=== PATIENT | female | born 1985 | race Caucasian/White ===

== ENCOUNTER 2023-08-08 13:52 | Emergency (ER) | payer MEDICAID, SELFPAY ==
--- NOTE | ~2023-08-08 | CT_ITS ---
EXAMINATION: CT ABDOMEN AND PELVIS WITHOUT CONTRAST CLINICAL INFORMATION: Left flank/back pain. Kidney stones? COMPARISON: None available. TECHNIQUE: Multidetector volumetric imaging was performed from the superior aspect of the liver through the pubic symphysis. Sagittal and coronal reformatted images were obtained on the technologist's workstation. This CT examination was performed using dose optimization techniques as appropriate, variously including the following: *Automated exposure control *Adjustment of mA and/or kV according to patient size (this includes techniques or standardized protocols for targeted exams where dose is matched to indication/reason for exam; i.e. extremities or head) *Use of iterative reconstruction technique DLP: 919 mGy-cm FINDINGS: LUNG BASES: The visualized lung bases are unremarkable. LIVER, GALLBLADDER, AND BILIARY TREE: The liver is normal in size, shape, and attenuation. No focal hepatic lesion or biliary ductal dilatation is present. The gallbladder is unremarkable with no evidence of radiopaque gallstones, gallbladder wall thickening, or obvious pericholecystic inflammatory changes. PANCREAS: Unremarkable. SPLEEN: Unremarkable. ADRENAL GLANDS: Unremarkable. KIDNEYS AND URETERS: 1 to 2 mm size stone in the upper pole of left kidney. No stone in the right kidney. No hydronephrosis. No ureteral calculi. BLADDER: Unremarkable. GASTROINTESTINAL TRACT: No acute abnormality. There is no bowel wall thickening /edema. There is no bowel obstruction. There is a moderate volume of stool in the colon. The appendix is normal . The small bowel loops are unremarkable. The stomach is normal. There is no hiatal hernia. ABDOMINAL WALL: No significant hernia is appreciated. LYMPH NODES: Normal. VASCULAR: Unremarkable. PELVIC VISCERA: Unremarkable. OSSEOUS STRUCTURES: Unremarkable. CT/CT abdomen pelvis wo IV con IMPRESSION: 1. No acute abnormality CT scan abdomen pelvis. 2. 1 to 2 mm size stone upper pole left kidney. No ureteral calculi or hydronephrosis. Fleischner guidelines were followed.
--- NOTE | ~2023-08-08 | XR_ITS ---
EXAMINATION: XR KNEE, RIGHT CLINICAL INFORMATION: Right knee pain COMPARISON: None available. TECHNIQUE: Four views of the right knee. FINDINGS: There is no fracture. No dislocation. No joint effusion. No focal bone lesion. Moderate joint narrowing of the medial femoral tibial joint with small marginal bone spurs of the femur. No bone erosion. Patellofemoral joint is maintained. Small exostosis at the origin of the patellar tendon inferior pole of the patella XR/XR knee RT 4V IMPRESSION: 1. No acute abnormality. 2. Moderate degenerative joint narrowing of the medial femoral tibial joint.
--- NOTE | ~2023-08-08 | XR_ITS ---
EXAMINATION: XR LUMBOSACRAL SPINE CLINICAL INFORMATION: Low back pain COMPARISON: None available. TECHNIQUE: Three views of the lumbosacral spine. FINDINGS: No fracture or destructive process or alignment abnormality. Vertebral body heights and disc space heights do appear preserved. XR/XR lumbar spine 2-3V IMPRESSION: Negative study.
[2023-08-08 14:01] VITALS: BP 144/105; PULSE 94; RESP 18; TEMP 36.6; O2SAT 97; BMI 47.7
--- NOTE | 2023-08-08 14:07 | ED_ITS ---
HPI - General Adult General Chief complaint: Back Pain/Injury Stated complaint: Numbness/tingling right leg Time Seen by Provider: 08/08/23 14:59 Source: patient Mode of arrival: ambulatory Limitations: no limitations History of Present Illness HPI narrative: 37-year-old female history of kidney stone presents to ED for right-sided back pain radiating down right buttock and right leg. Patient denies any lower extremity swelling. Patient does admits to knee pain. Patient denies any recent trauma. Patient states pain is worse on movement. Patient denies any urinary/bowel incontinence. Patient denies any IV drug use. Patient denies any recent trauma Related Data Previous Rx's ?Medication ?Instructions ?Recorded ketorolac 10 mg tablet 10 mg PO Q6H PRN pain 5 days #20 08/08/23 tabs oxycodone 5 mg capsule 5 mg PO Q8H PRN pain 3 days #9 caps 08/08/23 prednisone 20 mg tablet 40 mg (2 x 20 mg) PO DAILY 5 days 08/08/23 #10 tabs Allergies Allergy/AdvReac Type Severity Reaction Status Date / Time No Known Allergies Allergy Verified 08/08/23 14:07 [No Known Allergies*] Review of Systems 2 Review of Systems: Right-sided back pain radiating down right leg Yes all other systems are reviewed and are negative PMFSH Social History Social History Smoked in Last 30 Days: Yes Use of substances other than those prescribed or required for medical reasons: No Advance Directives: No Advance Directives Information Provided: No Physical Exam ED Vital Signs: Vital Signs - 24 hr 08/08/23 14:01 08/08/23 16:23 Temperature 98 F 97.9 F Pulse Rate 94 96 Respiratory Rate 18 16 Blood Pressure 144/105 H 154/78 H Pulse Oximetry 97 Oxygen Delivery Method Room Air Oxygen Flow Rate 98 BMI result Body Mass Index 47.7 Const General: cooperative, healthy appearing, comfortable, no acute distress, well developed, alert, awake and Physically active Orientation/consciousness: oriented to person, oriented to place, oriented to time and patient oriented x3 HENMT Head: Yes normal to inspection, Yes No palpable skull fracture present, Yes normocephalic and Yes atraumatic Eyes General: appearance normal, both eyes and all related structures Neck Neck: Yes normal visual inspection, Yes full ROM, Yes no lymphadenopathy, Yes no meningeal signs, Yes trachea midline, Yes supple, No anterior neck swelling and No tender Chest Chest palpation & inspection: normal inspection of the chest and normal palpation of entire chest wall Resp Effort & Inspection: normal respiratory effort and able to speak in complete sentences Auscultation: clear to auscultation bilaterally Cardio Jugular venous distension: no JVD Heart sounds: S1 normal heart sound present and S2 normal heart sound present GI Inspection: Yes normal to inspection Palpation (GI): Soft to palpation, not firm, nontender, no guarding and not rigid General: Yes CVA tenderness (Right) Back/Spine/Pelvis Back: CVA tenderness (Right) and back tenderness (Right muscular lumbar pain) Back/spine/pelvis image: 2 1. Positive for right buttock tenderness without any erythema, mass, fluctuance, foul odor, ecchymosis, or deformity. Neuro General: oriented to person, oriented to place, oriented to time, patient oriented x3, gait normal, tone normal, moves all extremities, Normal light touch and pain sensation, no meningeal signs, no focal motor deficits, CN's II-XI intact bilaterally and normal sensation to monofilament Extrem General: Yes normal to inspection, Yes full ROM and Yes capillary refill normal Upper/lower leg/hip images: 2 1. Positive for tenderness on palpation. Negative for erythema, swelling, deformity, or ecchymosis. Rest of extremity normal. No calf pain or leg swelling. Motor/neuro/vascular exam intact. 2. Positive for tenderness on palpation. Negative for erythema, swelling, deformity, or ecchymosis. Rest of extremity normal. No calf pain or leg swelling. Motor/neuro/vascular exam intact. Psych Appearance: grossly normal, well kempt and not disheveled Course Course Course Narrative: RME: 37-year-old female presents to ED for back pain radiating down right leg for 1 month described as sharp stabbing pain some numbness down the leg. Patient denies any urinary/bowel incontinence. Patient also states right knee pain. Patient states no flank pain, fever, chills, nausea, or vomiting. Medications Administered Discontinued Medications Generic Name Dose Route Start Last Admin Trade Name Freq PRN Reason Stop Dose Admin Cyclobenzaprine HCl 10 mg 08/08/23 16:23 08/08/23 16:38 Cyclobenzaprine Hcl 10 Mg Tablet PO 08/08/23 16:24 10 mg ONCE ONE Administration Ketorolac Tromethamine 30 mg 08/08/23 14:59 08/08/23 16:17 Ketorolac Tromethamine 30 Mg/Ml Vial IM 08/08/23 15:00 30 mg ONCE ONE Administration Oxycodone HCl 5 mg 08/08/23 17:51 08/08/23 18:41 Oxycodone Hcl Immed Release 5 Mg Tablet PO 08/08/23 17:52 5 mg ONCE ONE Administration Prednisone 60 mg 08/08/23 14:59 08/08/23 16:17 Prednisone 20 Mg Tablet PO 08/08/23 15:00 60 mg ONCE ONE Administration Tramadol HCl 50 mg 08/08/23 21:08 08/08/23 21:39 Tramadol Hcl 50 Mg Tablet PO 08/08/23 21:09 50 mg ONCE ONE Administration Medical Decision Making Medical Decision Making MDM Narrative: 37-year-old female presents to ED for right lower back pain radiating down right leg. Patient denies any trauma. Patient denies any urinary/bowel incontinence. Patient states no history of IV drug use. X-ray negative for radiculopathy. Patient states history of kidney stones. Patient states she is on menstruation which is widely lot of blood in the urine but patient was sent for abdominal CT scan. Labs are normal negative kidney injury. Patient given Toradol,oxycodone, prednisone, flexeril RME: CT scan shows left upper pole kidney. Negative for any spinal fractures, arthritis of the spine or hip. Appendix normal. Re-evaluation tenderness only in the right buttock area for sciatica. Right buttock area negative for fluctuance, mass, pus discharge, foul odor. Not suspecting epidural abscess or cauda equina. Negative for urinary/bowel incontinence or history of IV drug use. Differential Diagnosis Differential Diagnoses: The differential diagnosis associated with the presentation includes (Sciatica, lumbar radiculopathy, kidney stone, spinal fracture) Lab Data 08/08/23 18:09 08/08/23 18:09 Labs: Lab Results 08/08/23 08/08/23 Range/Units 16:35 18:09 WBC 11.2 H (4.8-10.8) X10*3/uL RBC 4.91 (4.20-5.50) X10*6/uL Hgb 13.3 (12.0-16.0) g/dl Hct 41.1 (37.0-47.0) % MCV 83.7 (80.0-98.0) fL MCH 27.1 (27.0-33.0) pg MCHC 32.4 (31.0-35.0) g/dl RDW 13.7 (11.0-16.0) % Plt Count 290 (160-400) X10*3/uL MPV 10.1 (9.4-12.3) fL Immature Gran % (Auto) 0.4 (0.0-0.4) % Neut % (Auto) 79.8 H (45-73) % Lymph % (Auto) 14.5 L (20-40) % [place] % (Auto) 3.7 (2-11) % Eos % (Auto) 1.3 (0-4) % Baso % (Auto) 0.3 (0-2) % Lymph # (Auto) 1.6 (1.2-4.9) X10*3/uL [place] # (Auto) 0.4 (0.1-1.2) X10*3/uL Eos # (Auto) 0.1 (0.0-0.4) X10*3/uL Baso # (Auto) 0.0 (0.0-0.2) X10*3/uL Abs Immat Gran (auto) 0.04 H (0.00-0.03) X10*3/uL Absolute Neuts (auto) 8.9 H (2.0-8.3) x10*3/uL Absolute Nucleated RBC 0.000 (0.0-0.012) X10*3/uL Nucleated RBC % (auto) 0.0 (0.0-0.2) /100WBC Sodium 141 (135-145) mmol/L Potassium 4.3 (3.3-5.1) mmol/L Chloride 107 (96-108) mmol/L Carbon Dioxide 25 (22-29) mmol/L Anion Gap 13 (12-20) BUN 11 (9-16) mg/dL Creatinine 0.74 (0.5-1.4) mg/dL Estim Creat Clear Calc 149.3 Estimated GFR > 60 Random Glucose 101 (60-115) mg/dL Calcium 9.8 (8.4-10.2) mg/dL Total Bilirubin 0.6 (0.0-1.0) mg/dL AST 16 (5-31) U/L ALT 17 (0-31) U/L Alkaline Phosphatase 56 (39-117) U/L Total Protein 7.8 (6.5-8.0) g/dL Albumin 3.9 (3.5-5.0) g/dL Urine Color Yellow Urine Appearance Clear Urine pH 5.5 (5.0-9.0) Ur Specific [place] 1.025 (1.005-1.025) Urine Protein Trace (Neg-Trace) mg/dL Urine Glucose (UA) Negative (Negative) mg/dL Urine Ketones Negative (Negative) mg/dL Urine Blood Large (3+) H (Negative) Urine Nitrite Negative (Negative) Ur Leukocyte Esterase Negative (Negative) Urine RBC >20 H (0-2) /HPF Urine WBC 0-5 (0-5) /HPF Ur Squamous Epith Cells 0-2 (0-2) /HPF Urine Bacteria 1+ (None Seen) Hyaline Casts 0-2 (0-2) /LPF Urine Test NEGATIVE (NEGATIVE) Discharge Plan Discharge Clinical Impression: Sciatica, Arthritis of knee Patient Disposition: Home, Self-Care Instructions: Osteoarthritis (ED), Sciatica (ED), Back Pain (ED) Additional Instructions: Return to the ED immediately for severe back pain, urinary/bowel incontinence, fever, chills, paralysis of lower extremities, fever, chills, nausea, vomiting, abdominal pain, inability to walk, knee swelling/redness/stiffness or any other concerning symptoms. Recommend follow-up with primary care provider Prescriptions: New ketorolac 10 mg tablet 10 mg PO Q6H PRN (Reason: pain) 5 Days Qty: 20 0RF Rx Instructions: Received Toradol IM in the ED prednisone 20 mg tablet 40 mg PO DAILY 5 Days Qty: 10 0RF oxycodone 5 mg capsule 5 mg PO Q8H PRN (Reason: pain) 3 Days Qty: 9 0RF Rx Instructions: Partial Fill upon patient request. Stand Alone Forms: Work/School Release Interventions: ED Discharge Assessment Last Done: 08/08/23 21:45 Discharge Date/Time: 08/08/23 21:46 Print Language: Kyrgyz
[2023-08-08] MEDS: predniSONE 20 MG TABLET 60 MG PO (16:17)
[2023-08-08] MEDS: Ketorolac Tromethamine 30 MG/ML VIAL IM (16:17)
[2023-08-08 16:23] VITALS: BP 154/78; PULSE 96; RESP 16; TEMP 36.6
[2023-08-08] MEDS: Cyclobenzaprine HCl 10 MG TABLET PO (16:38)
[2023-08-08 16:42] LABS: Appearance Urine Clear; Color Urine Yellow; Glucose Urine UA Negative (Negative); Leukocyte Esterase Urine Negative (Negative); Nitrite Urine Negative (Negative); PH 5.5 (5.0-9.0); Specific Gravity - Urine 1.025 (1.005-1.025); UMIC TRIGGER UACC YES; Urine Blood Large (3+) (Negative); Urine Ketones Negative (Negative); Urine Protein Trace mg/dL (Neg-Trace)
[2023-08-08 16:45] LABS: Bacteria Urine 1+ (None Seen); Hyaline Casts Urine 0-2 /LPF (0-2); RBC Urine >20 /HPF (0-2); Squamous Epithelial Cell Urine 0-2 /HPF (0-2); UPreg QC Valid YES; Urine Pregnancy NEGATIVE (NEGATIVE); WBC Urine 0-5 /HPF (0-5)
[2023-08-08 18:14] LABS: MANUAL DIFF FLAG NO
[2023-08-08 18:22] LABS: Basophils Percent Auto 0.3 % (0-2); Eosinophils Absolute Auto 0.1 X10*3/uL (0.0-0.4); Eosinophils Percent Auto 1.3 % (0-4); Hematocrit 41.1 % (37.0-47.0); Hemoglobin 13.3 g/dl (12.0-16.0); Imm Gran Abs Auto 0.04 X10*3/uL (0.00-0.03); Imm Gran Pct Auto 0.4 % (0.0-0.4); Lymphocytes Absolute Auto 1.6 X10*3/uL (1.2-4.9); Lymphocytes Percent Auto 14.5 % (20-40); Mean Corpuscular HGB Conc 32.4 g/dl (31.0-35.0); Mean Corpuscular Hemoglobin 27.1 pg (27.0-33.0); Mean Corpuscular Volume 83.7 fL (80.0-98.0); Mean Platelet Volume 10.1 fL (9.4-12.3); Monocytes Absolute Auto 0.4 X10*3/uL (0.1-1.2); Monocytes Percent Auto 3.7 % (2-11); Neutrophils Absolute Auto 8.9 x10*3/uL (2.0-8.3); Neutrophils Percent Auto 79.8 % (45-73); Platelet Count 290 X10*3/uL (160-400); Red Blood Count 4.91 X10*6/uL (4.20-5.50); Red Cell Distribution Width 13.7 % (11.0-16.0); White Blood Count 11.2 X10*3/uL (4.8-10.8)
[2023-08-08 18:30] LABS: Alanine Aminotransferase 17 U/L (0-31); Albumin Level 3.9 g/dL (3.5-5.0); Alkaline Phosphatase 56 U/L (39-117); Anion Gap 13 (12-20); Aspartate Amino Transferase 16 U/L (5-31); Bilirubin Total 0.6 mg/dL (0.0-1.0); Blood Urea Nitrogen 11 mg/dL (9-16); Calcium 9.8 mg/dL (8.4-10.2); Carbon Dioxide 25 mmol/L (22-29); Chloride 107 mmol/L (96-108); Creatinine Clr Calc Pharmacy 149.3; Estimated Glomerular Filt Rate > 60; Glucose Random 101 mg/dL (60-115); Potassium 4.3 mmol/L (3.3-5.1); Sodium 141 mmol/L (135-145); Total Protein 7.8 g/dL (6.5-8.0)
[2023-08-08] MEDS: oxyCODONE HCl Immed Release 5 MG TABLET PO (18:41)
--- NOTE | 2023-08-08 21:32 | PC.NURSE ---
Took over care from BERNADETTE Cooper at 7pm pt resting awaiting to ct results, provider into discuss findings, reviewed discharge instructions with pt. pt verbalized understanding, at discharge pt had some discomfort but stated she felt better than when she got here.
[2023-08-08] MEDS: traMADoL HCL 50 MG TABLET PO (21:39)
[2023-08-08 21:45] VITALS: BP 157/70; PULSE 68; RESP 20; TEMP 36.6; O2SAT 98
== END 2023-08-08 21:46 | disposition home or self-care (01) ==
PROVIDERS: Physician Assistant; Emergency Provider Emergency Medicine
DX: M54.40 Lumbago with sciatica, unspecified side (principal); M17.11 Unilateral primary osteoarthritis, right knee; M25.561 Pain in right knee; R20.0 Anesthesia of skin; Z79.899 Other long term (current) drug therapy
CPT/HCPCS: 36415; 72100; 73564; 74176; 80053; 81001; 81025; 85025; 96372; 99284; J1885

== ENCOUNTER 2024-02-26 12:51 | Outpatient (REF) | payer MEDICAID, SELFPAY ==
[2024-02-26 14:23] LABS: MANUAL DIFF FLAG NO
[2024-02-26 14:24] LABS: Basophils Percent Auto 0.4 % (0-2); Eosinophils Absolute Auto 0.2 X10*3/uL (0.0-0.4); Eosinophils Percent Auto 1.9 % (0-4); Hematocrit 42.8 % (37.0-47.0); Hemoglobin 13.4 g/dl (12.0-16.0); Imm Gran Abs Auto 0.03 X10*3/uL (0.00-0.03); Imm Gran Pct Auto 0.4 % (0.0-0.4); Lymphocytes Absolute Auto 2.1 X10*3/uL (1.2-4.9); Lymphocytes Percent Auto 25.9 % (20-40); Mean Corpuscular HGB Conc 31.3 g/dl (31.0-35.0); Mean Corpuscular Hemoglobin 25.4 pg (27.0-33.0); Mean Corpuscular Volume 81.2 fL (80.0-98.0); Mean Platelet Volume 10.7 fL (9.4-12.3); Monocytes Absolute Auto 0.4 X10*3/uL (0.1-1.2); Monocytes Percent Auto 4.9 % (2-11); Neutrophils Absolute Auto 5.3 x10*3/uL (2.0-8.3); Neutrophils Percent Auto 66.5 % (45-73); Platelet Count 328 X10*3/uL (160-400); Red Blood Count 5.27 X10*6/uL (4.20-5.50); Red Cell Distribution Width 17.1 % (11.0-16.0)
[2024-02-26 14:30] LABS: Prothrombin Time 11.4 SEC (10.9-12.4)
[2024-02-26 14:53] LABS: Alanine Aminotransferase 19 U/L (0-31); Alkaline Phosphatase 68 U/L (39-117); Anion Gap 14 (12-20); Aspartate Amino Transferase 19 U/L (5-31); Bilirubin Total 0.4 mg/dL (0.0-1.0); Blood Urea Nitrogen 10 mg/dL (9-16); Calcium 9.4 mg/dL (8.4-10.2); Carbon Dioxide 24 mmol/L (22-29); Chloride 108 mmol/L (96-108); Cholesterol 171 mg/dL (<200); Estimated Glomerular Filt Rate > 60; Glucose Random 97 mg/dL (60-115); HDL Cholesterol 46 mg/dL (>40); LDL Cholesterol Calculated 104 mg/dL (<100); Potassium 4.1 mmol/L (3.3-5.1); Sodium 142 mmol/L (135-145); Total Protein 7.9 g/dL (6.5-8.0); Triglycerides 107 mg/dL (<150)
[2024-02-26 15:07] LABS: TSH reflex Free T4 2.61 uIU/mL (0.32-4.0)
[2024-02-26 15:27] LABS: Insulin 31 uU/mL (2-29)
[2024-02-27 08:28] LABS: HIV AB/AG Nonreactive (Nonreactive); HIV Num 1 0.07 S/CO (0.00-0.99); ~Hepatitis C Antibody Nonreactive (Nonreactive)
[2024-02-29 06:49] LABS: Prolactin Undiluted 4.9 ng/mL
[2024-02-29 17:23] LABS: Anti-Mullerian Hormone-Female 1.78 ng/mL (0.18-5.68)
[2024-03-04 16:53] LABS: Testosterone, Free 4.7 pg/mL (0.1-6.4); Testosterone, Total 23 ng/dL (2-45)
== END 2024-02-26 12:52 | disposition home or self-care (01) ==
LOC: HO.CHCLDS 12:51
PROVIDERS: Visit Provider Family Medicine
DX: N93.9 Abnormal uterine and vaginal bleeding, unspecified (principal); E66.01 Morbid (severe) obesity due to excess calories
CPT/HCPCS: 36415; 80053; 80061; 82166; 83525; 84146; 84402; 84403; 84443; 85025; 85610; 86803; 87389

== ENCOUNTER 2024-03-03 15:41 | Outpatient (REF) | payer MEDICAID, SELFPAY | END 2024-03-03 15:42 | disposition home or self-care (01) | LOC: HO.US 15:41 | PROVIDERS: PCP Family Medicine; Visit Provider Family Medicine | DX: N93.9 Abnormal uterine and vaginal bleeding, unspecified (principal) | CPT/HCPCS: 76830; 76856 ==

== ENCOUNTER → 2024-03-31 14:09 | Outpatient (REF) | payer MEDICAID, SELFPAY | LOC: HO.SL 14:09 | PROVIDERS: PCP Family Medicine; Visit Provider Family Medicine | DX: G47.30 Sleep apnea, unspecified (principal) | CPT/HCPCS: 95806 ==

== ENCOUNTER → 2024-04-01 19:00 | Outpatient (BNV) | payer MEDICAID, SELFPAY | PROVIDERS: PCP Family Medicine; Visit Provider Psychiatry & Neurology Neurology | DX: G47.33 Obstructive sleep apnea (adult) (pediatric) (principal) | CPT/HCPCS: 95806 ==

== ENCOUNTER 2024-06-11 17:44 | Outpatient (REF) | payer MEDICAID, SELFPAY ==
--- OUTSIDE RECORDS SUMMARY | 2024-06-11 19:31 | XMS_ITS | Encounter Summary ---
Author Organization [employer] Address [address] [place] [address] [address] [place] [address] Care Team Providers Care Screen Roller Name Role Phone Katerin Brown MD Primary Care Provider [phone] Reason for Visit * Reason Onset Date Comments Nurse Triage 06/11/2024 Encounter Details Date Type Department Care Team ([facility] st Contact Info) Description 06/11/2024 Telephone [facility] [address] [place] [address] Katerin Brown MD [address] [place] [address] Nurse Triage Social History Tobacco Use Types Packs/Day Years Used Date Smoking Tobacco: Never Passive Smoke Exposure: Past Smokeless Tobacco: Never Alcohol Use Standard Drinks/Week Comments Never 0 (1 standard drink = 0.6 oz pur e alcohol) Depression Answer Date Recorded Patient Health Questionnaire-9 Score 23 02/21/2024 Patient Health Questionnaire-9 Score 23 02/21/2024 Last PHQ-9: Questionnaire Data Not on file 1 04/22/2023 Depression Answer Date Recorded Patient Health Questionnaire-2 Score 6 02/21/2024 Comments No Sex and Gender Information Value Date Recorded Sex Assigned at Female 01/29/2022 10:17 AM EDT Legal Sex Female 10:17 AM EDT Gender Identity Female 05/21/2023 11:49 AM EST Sexual Orientation Straight 05/21/2023 11 :49 AM EST documented as of this encounter Miscellaneous Notes * Telephone Encounter - Sunitha Wilson RN - 06/11/2024 1:11 PM EDT Called pt. She states that she has a sore throat and pain in both ears when pt. Swallows. Pt also is developing a cough. Pt. Has decreased appetite due to not wanting to swallow. Pt. Voice is hoarse.Pt did take Tylenol this am with no relief. Pt. Is able to make it to clinic for a 2pm appt. In [facility]. Booked pt for 2pm. Protocol Used: Sore Throat (Adult) Protocol-Based Disposition: See in Office or Video Visit Today- appt at 2pm in [facility] Video visit offer not recorded Positive Triage Questions: * Severe sore throat pain * Earache also present * Patient wants to be seen * All higher-acuity triage questions were negative Care Advice Discussed: * Sore Throat * Soft Diet * Drink Plenty of Liquids * Pain and Fever Medicines * Contagiousness * Telephone Encounter - Kellen Ross - 06/11/2024 1:00 PM EDT Symptoms: Sore Throat, Earache Outcome: Talk to a nurse or provider within 15 minutes Reason: Can't swallow saliva (drooling) The caller accepted this outcome. [phone] (pt) documented in this encounter Plan of Treatment Not on file documented as of this encounter Visit Diagnoses Not on filedocumented in this encounter Additional Health Concerns Assessment Noted Time PHQ-9 Depression Total Score: 23 024 2:09 PM EST documented as of this encounter Care Teams Screen Roller Relationship Specialty Start Date End Date Katerin Brown MD [address] [place] [id number] PCP - General Family Medicine 02/21/24 documented as of this encounter
--- OUTSIDE RECORDS SUMMARY | 2024-06-11 19:31 | XMS_ITS | Encounter Summary ---
Author Organization [employer] Address [address] [place] [address] [address] [facility] [place] [address] Care Team Providers Care Central Sterile Supply Technician Name Role Phone Katerin Brown MD Primary Care Provider [phone] Reason for Referral * Consultation (Urgent) - Closed Specialty Diagnoses / Procedures Referred By Contdonny t Referred To Contact Neurosurgery Diagnoses Sciatica of right side Jovon Skelton MD [address] [place] [id number] Phone: tel: fax: Neurosurgery, [address] [place], [place] Phone: tel: fax: Referral ID Status Reason Start Date Expiration Date V isits Requested Visits Authorized [id number] Closed Specialty Services Required 08/19/2023 08/18/2024 1 1 Encounter Details Date Type Department Care Team (Late st Contact Info) Description 08/19/2023 Orders Only [facility] [address] [place] [address] Jovon Skelton MD [address] [place] [id number] Sciatica of right side (Primary Dx) Social History Tobacco Use Types Packs/Day Years Used Date Smoking Tobacco: Never Smokeless Tobacco: Never Alcohol Use Standard Drinks/Week Comments Never 0 (1 standard drink = 0.6 oz pur e alcohol) Comments No Sex and Gender Information Value Date Recorded Sex Assigned at Female 01/29/2022 10:17 AM EDT Legal Sex Female 10:17 AM EDT Gender Identity Female 05/21/2023 11:49 AM EST Sexual Orientation Straight 05/21/2023 11 :49 AM EST documented as of this encounter Plan of Treatment Not on file documented as of this encounter Procedures Procedure Name Priority Date/Time Associated Diagnosis Comments AMB REFERRAL TO NEUROSURGERY Urgent 09/09/2023 Sciatica of right side documented in this encounter Results * Referral to Neurosurgery (09/09/2023) us Jovon Skelton MD OUTPATIENT REFERRAL ORDERAB LES Final Result documented in this encounter Visit Diagnoses Diagnosis Sciatica of right side- Primary documented in this encounter Care Teams Central Sterile Supply Technician Relationship Specialty Start Date End Date Katerin Brown MD [address] [place] [id number] PCP - General Family Medicine 02/21/24 documented as of this encounter
--- OUTSIDE RECORDS SUMMARY | 2024-06-11 19:31 | XMS_ITS | Clinical Summary ---
Author Organization [employer] Address [address] [place] [address] [address] [place] [address] Care Team Providers Care Community Development Manager Name Role Phone Katerin Brown MD Primary Care Provider Allergies Active Allergy Reactions Criticality Noted Date Comments Acetaminophen Hives 12/15/2012 Aspirin Hives 12/15/2012 Caffeine Hives 12/15/2012 Medications * This document contains information received from the source organization and may not represent a complete record from that organization. venlafaxine XR (Effexor XR) 37.5 MG 24 hr capsule Take 1 capsule (37.5 mg) by mouth Once per day. Do not crush or chew. 90 capsule 1 02/21/2024 Active Tirzepatide-Rei ght Management (Zepbound) 2.5 MG/0.5ML solution auto-injector Inject 0.5 mL (2.5 mg) under the skin 1 (one) time per week. 2 mL 1 02/21/2024 Active amoxicillin (Amoxil) 500 MG capsule Take 1 capsule (500 mg) by mouth every 8 (eight) hours for 10 days. 30 capsule 06/11/2024 Active ibuprofen 600 MG tablet Take 1 tablet (600 mg) by mouth every 8 (eight) hours if needed for mild pain. 90 tablet 06/11/2024 5 Active Active Problems Problem Noted Date Diagnosed Date Severe obesity 02/21/2024 Assessment & Plan (02/22/2024 9:41 AM EST): Ordering lab work for further evaluation. Discussed weight loss treatments, prescribing Zepbound. Follow up 4-6 weeks after beginning medication. 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 Follow up for pap in 2 weeks. Kidney stone 08/12/2023 Sleep apnea 08/12/2023 Assessment & Plan (02/22/2024 9:39 AM EST): Ordering sleep test for further evaluation. Resolved Problems Problem Noted Date Diagnosed Date Resolved Date Depressive disorder 08/12/2023 02/21/20 24 Encounters Date Type Department Care Team Description 06/11/2024 2:00 PM EDT Office Visit [facility] MED & PEDS [address] [place] [address] Karen Griffith MD URI, acute (Primary Dx) 06/11/2024 Travel 06/11/2024 Telephone [facility] [address] [place] [phone] Katerin Brown MD Nurse Triage 06/10/2024 Refill [facility] MED [facility] PEDS [address] [place] [address] Katerin Brown MD 04/22/2024 Telephone [facility] [address] [place] [phone] Tosha Atkinson [place] Internal referral 04/22/2024 Telephone [facility] & PED[facility] [address] [place] [address] Katerin Brown MD from Last 3 Months Immunizations Name Administration Dates Next Due DTaP 07/30/1992, 1,08/30/1988,1988,1987 Hep B, Adolescent or Pediatric 10/14/1998,1997,03/01/1997 Hib (HbOC) 05/02/1990 Influenza, Split (incl. simon fied surface antigen) 12/15/2012 MMR 05/02/1994,01/30/1989 OPV 05/02/1998, 3,06/30/1988,1987 TD (adult), 2 Lf tetanus tox oid, preservative free, adsorbed 11/01/2008,09/29/1998 Tdap 12/15/2012 Family History Medical History Relation Name Comments Hypertension Mother Relation Name Status Comments Mother Social History Tobacco Use Types Packs/Day Years Used Date Smoking Tobacco: Never Passive Smoke Exposure: Past Smokeless Tobacco: Never Tobacco Cessation:Counseling Given: Not Answered Alcohol Use Standard Drinks/Week Comments Never 0 [...] Orientation Straight 05/21/2023 11 :49 AM EST Last Filed Vital Signs Vital Sign Reading Time Taken Comments Blood Pressure 136/100 06/11/2024 2:35 PM EDT Pulse 84 06/11/2024 2:35 PM EDT Temperature 36.8 ??C (98.3 ??F) 06/11/2024 2:35 PM ED T Respiratory Rate 20 06/11/2024 2:35 PM EDT Oxygen Saturation 99% 06/11/2024 2:35 PM EDT Inhaled Oxygen Concentration - - Weight 144 kg (318 lb) 06/11/2024 2:35 PM EDT Height 167 cm (5' 5.75 ) 06/11/2024 2:35 PM EDT Body Mass Index 51.72 06/11/2024 2:35 PM EDT Plan of Treatment Health Maintenance Due Date Last Done Comments Dental Oral Exam 1987 Dental Prophylaxis 1987 Dental X-Ray: Full Mouth 1987 SDOH Screening 1987 Family Planning (PISQ) 10/20/2002 Pap Smear 10/20/2008 Cervical Cancer Screening 10/20/2017 HPV/Cotest 10/20/2017 Dental X-Ray: Bitewings 05/22/2024 05/21/2023 Depression Monitoring (PHQ-9) 08/20/2024 02/21/2024, 02/21/2024 Influenza Vaccine (#1) 2024 12/15/2012 Postp oned from 12/01/2023 (Patient Refused) Alcohol/Substance Use Screening 02/20/2025 02/21/2024 COVID-19 Vaccine ( season) 2025 Postponed from 12/01/2023 (Patient Refused) DTaP/Tdap/Td Vaccines (7 - Td or Tdap) 02/20/2025 12/15/2012, 11/01/2008, 09/29/1998, Additional history exists Postponed from 12/15/2022 (Patient Refused) Depression Screening 02/20/2025 02/21/2024, 02/21/20 Tobacco Screening 06/11/2025 06/11/2024 Lipid Panel 02/25/2029 02/26/2024, 09/23/2019 Zoster Vaccines (1 of 2) 10/20/2037 RSV Patients and Patients Aged 60 years or older (1 - 1-dose 75+ series) 10/20/2062 HIB Vaccines Completed 05/02/1990 IPV Vaccines Completed 05/02/1998, 05/0 04/1992, 06/30/1988, Additional history exists Hepatitis B Vaccines Completed 10/14/1998, 05/02/1997, 03/01/1997 HIV Screening Completed 02/26/2024 Hepatitis C Screening Completed 02/26/2024 HPV Vaccines Aged Out No longer eligi ble based on patient's age to complete this topic Hepatitis A Vaccines Aged Out No long er eligible based on patient's age to complete this topic Meningococcal Vaccine Aged Out No stephany lisa eligible based on patient's age to complete this topic Pneumococcal Vaccine: Pediatrics (0 to 5 Years) and At-Risk Patients (6 to 49) Years) Aged Out No longer eligible based on patient's age to complete this topic RSV under 20 months Aged Out No longe r eligible based on patient's age to complete this topic Rotavirus Vaccines Aged Out No longer eligible based on patient's age to complete this topic Procedures Procedure Name Priority Date/Time Associated Diagnosis Comments POCT RAPID STREP A Routine 06/11/2024 3: 14 PM EDT URI, acute POCT INFLUENZA B Routine 06/11/2024 3:13 PM EDT URI, acute POCT INFLUENZA A Routine 06/11/2024 3:13 PM EDT URI, acute POCT RAPID COVID ANTIGEN Routine 06/11/2024 3:11 PM EDT URI, acute HEPATITIS C AB W/REFL TO HCV RNA, QN, PCR Routine 02/26/2024 12:53 PM EST Encounter for health-related screening HIV 1/2 ANTIGEN/ANTIBODY, FOURTH GENERATION W/RFL Routine 02/26/2024 12:53 PM EST Encounter for health-related screening LIPID PANEL, STANDARD Routine 02/26/2024 12:53 PM EST Severe obesity (CMS/HCC) BITEWING - SINGLE RADIOGRAPHIC IMAGE Routine 05/21/2023 2:30 PM EST from Last 3 Months or Most Recently Relevant to Health Maintenance Results * POCT Rapid Strep A OSOM (06/11/2024 3:14 PM EDT) [facility] Rapid Strep A Screen Negative Negative, None Detected Comment:internal controls pa ssed QC Media Lot # [id number] Lot# Expiration Date 33,125 Swab 06/11/2024 3:14 PM EDT Karen Griffith MD POINT OF CARE TEST ENTER/EDIT ORDERABLES Final Result * POCT Rapid Influenza B OSOM (06/11/2024 3:13 PM EDT) [facility] Rapid Influenza B Ag Negative Negative, Indeterminate Comment:internal controls pa ssed QC Media Lot # [id number] Lot# Expiration Date 73,125 Swab 06/11/2024 3:13 PM EDT Karen Griffith MD POINT OF CARE TEST ENTER/EDIT ORDERABLES Final Result * POCT Rapid Influenza A OSOM (06/11/2024 3:13 PM EDT) [facility] Rapid Influenza A Ag Negative Negative, Indeterminate Comment:internal controls pa ssed QC Media Lot # [id number] Lot# Expiration Date 73,125 Swab Nasopharyngeal structure / Unknown 06/11/2024 3:13 PM EDT us Karen Griffith MD POINT OF CARE TEST ENTER/EDIT ORDERABLES Final Result * POCT Rapid Covid-19 BinaxNOW (06/11/2024 3:11 PM EDT) [facility] Rapid COVID Ag Negative Comment:internal controls pa ssed QC Media Lot # [id number] Lot# Expiration Date 71,126 Swab 06/11/2024 3:11 PM EDT us Karen Griffith MD POINT OF CARE TEST ENTER/EDIT ORDERABLES Final Result * Hepatitis C Antibody with Reflex to HCV, RNA, Quantitative, Real-Time PCR (02/26/2024 12:53 PM EST) [facility] Hepatitis C Antibody Nonreactive Nonreactive [facility] Comment:Antibodies to HCV no t detected; does not exclude early acuteHCV infection. Blood Venous blood specimen / Unknown 02/26/2024 12:53 PM EST 02/26/2024 2:18 PM EST Katerin Brown MD LAB BLOOD ORDERABLES Final Re sult [facility] [address] [place] [phone] * HIV-1/2 Antigen and Antibodies, Fourth Generation, with Reflexes (02/26/2024 12:53 PM EST) HIV AB/AG Nonreactive Nonreactive [facility] Comment:HIV-1 p24 Ag and/or HIV-1/HIV-2 Ab not detected.A test result that is nonreactive does not exclude thepossibility of exposure to or infection with HIV-1 and/orHIV-2. Nonreactive results in this assay for individualswith prior exposure to HIV-1 and/or HIV-2 may be due toantigen and antibody levels that are below the limit ofdetection of this assay.The [employer] HIV Ag/Ab Combo assay result andsupplemental assay results should be interpreted inconjunction with the patient's clinical presentation,history and other laboratory results. If the results areinconsistent with clinical evidence, additional testing issuggested to confirm the result. Blood Venous blood specimen / Unknown 02/26/2024 12:53 PM EST 02/26/2024 2:18 PM EST us Katerin Brown MD LAB BLOOD ORDERABLES Final Re sult [facility] [address] [place] [phone] * (ABNORMAL) Lipid Panel, Standard (02/26/2024 12:53 PM EST) Triglycerides 107 <150 mg/dL [facility] Comment:Desirable Triglyceri de: less than 150 mg/dLBorderline High Triglyceride 150-199 mg/dLHigh Triglyceride: 200-499 mg/dLVery High Triglyceride: greater than or equal to 5OO mg/dL Cholesterol 171 <200 mg/dL [facility] Comment:Desirable Cholestero l: less than 200 mg/dLBorderline High Cholesterol: 200-239 mg/dLHigh Cholesterol: greater than 239 mg/dL LDL Cholesterol Calculated 104(H) <100 mg/dL [facility] Comment:Desirable LDL: less than 100 mg/dLNear Optimal/Above Optimal LDL: 110- 129 mg/dLBorderline High LDL: 130-159 mg/dLHigh LDL: 160-189 mg/dLVery High LDL: greater than or equal to 190 mg/dL HDL Cholesterol 46 >40 mg/dL [facility] Comment:Desirable HDL: great er than 40 mg/dL Note: This HDL assay may give artificially low results in patients with liver disease. Blood Venous blood specimen / Unknown 02/26/2024 12:53 PM EST 02/26/2024 2:18 PM EST us Katerin Brown MD LAB BLOOD ORDERABLES Final Re sult [facility] [address] [place] [address] [phone] from Last 3 Months or Most Recently Relevant to Health Maintenance Insurance [facility] C3 DENTAL-[facility] MEDICAID STAND ADULT [address] [place] [address] Care Teams Community Development Manager Relationship Specialty Start Date End Date Katerin Brown MD [address] [place] [phone] PCP - General Family Medicine 02/21/24
--- OUTSIDE RECORDS SUMMARY | 2024-06-11 19:31 | XMS_ITS | Encounter Summary ---
Author Organization [employer] Address [address] [place] [address] [address] [place] [address] Care Team Providers Care Billing Services Manager Name Role Phone Katerin Brown MD Primary Care Provider [phone] Reason for Visit * Reason Onset Date Comments Med Refill 06/10/2024 Encounter Details Date Type Department Care Team ([facility] st Contact Info) Description 06/10/2024 Refill [facility]EDS [address] [place] [address] Katerin Brown MD [address] [place] [address] Social History Tobacco Use Types Packs/Day Years [...] documented as of this encounter Care Teams Billing Services Manager Relationship Specialty Start Date End Date Katerin Brown MD [address] [place] [address] PCP - General Family Medicine 02/21/24 documented as of this encounter
--- OUTSIDE RECORDS SUMMARY | 2024-06-11 19:31 | XMS_ITS | Encounter Summary ---
Author Organization [employer] Address [address] [place] [address] 7 [place] [address] Care Team Providers Care Him Assistant Name Role Phone Katerin Brown MD Primary Care Provider [phone] Encounter Details Date Type Department Care Team ([facility] st Contact Info) Description 06/11/2024 2:00 PM EDT Office Visit [facility] & [facility]EDS [address] [place] [address] Karen Griffith MD [address] [place] [address] URI, acute (Primary Dx) Social History Tobacco Use Types [...] AM EST documented as of this encounter Last Filed Vital Signs Vital Sign Reading [...] Mass Index 51.72 06/11/2024 2:35 PM EDT documented in this encounter Plan of Treatment Scheduled Orders Name Type Priority Associated Diagnoses Orde r Schedule Culture, Throat Microbiology Routine URI, acute Ordered: 06/11/2024 documented as of this encounter Procedures Procedure Name Priority Date/Time Associated Diagnosis Comments POCT RAPID STREP A Routine 06/11/2024 3: 14 PM EDT URI, acute POCT INFLUENZA B Routine 06/11/2024 3:13 PM EDT URI, acute POCT INFLUENZA A Routine 06/11/2024 3:13 PM EDT URI, acute POCT RAPID COVID ANTIGEN Routine 06/11/2024 3:11 PM EDT URI, acute documented in this encounter Results * POCT Rapid Strep A OSOM (06/11/2024 3:14 PM EDT) [facility] Rapid Strep A Screen Negative Negative, None Detected Comment:internal controls pa ssed QC Media Lot # [id number] Lot# Expiration Date 33,125 Swab 06/11/2024 3:14 PM EDT Karen Griffith MD POINT OF CARE TEST ENTER/EDIT ORDERABLES Final Result * POCT Rapid Influenza B OSOM (06/11/2024 3:13 PM EDT) [facility] Rapid Influenza B Ag Negative Negative, Indeterminate Comment:internal controls pa ssed QC Media Lot # [id number] Lot# Expiration Date 73,125 Swab 06/11/2024 3:13 PM EDT Karen Griffith MD POINT OF CARE TEST ENTER/EDIT ORDERABLES Final Result * POCT Rapid Influenza A OSOM (06/11/2024 3:13 PM EDT) [facility] Rapid Influenza A Ag Negative Negative, Indeterminate Comment:internal controls pa ssed QC Media Lot # [id number] Lot# Expiration Date 73,125 Swab Nasopharyngeal structure / Unknown 06/11/2024 3:13 PM EDT Karen Griffith MD POINT OF CARE TEST ENTER/EDIT ORDERABLES Final Result * POCT Rapid Covid-19 BinaxNOW (06/11/2024 3:11 PM EDT) [facility] Rapid COVID Ag Negative Comment:internal controls pa ssed QC Media Lot # [id number] Lot# Expiration Date 71,126 Swab 06/11/2024 3:11 PM EDT Karen Griffith MD POINT OF CARE TEST ENTER/EDIT ORDERABLES Final Result documented in this encounter Visit Diagnoses Diagnosis URI, acute- Primary Acute upper respiratory infections of unspecified site documented in this encounter Additional Health Concerns Assessment Noted Time PHQ-9 Depression Total Score: 23 024 2:09 PM EST documented as of this encounter Care Teams Him Assistant Relationship Specialty Start Date End Date Katerin Brown MD [address] [place] [phone] PCP - General Family Medicine 02/21/24 documented as of this encounter
--- OUTSIDE RECORDS SUMMARY | 2024-06-11 19:31 | XMS_ITS | Encounter Summary ---
Author Organization [employer] Address [address] [place] [address] [address] [place] [address] Care Team Providers Care Wrapping Machine Helper Name Role Phone Katerin Brown MD Primary Care Provider [phone] Encounter Details Date Type Department Care Team (Latest Contact Info) Description 06/11/2024 Travel Social History Tobacco Use Types Packs/Day Years [...] documented as of this encounter Care Teams Wrapping Machine Helper Relationship Specialty Start Date End Date Katerin Brown MD [address] [place] [address] PCP - General Family Medicine 02/21/24 documented as of this encounter
== END 2024-06-11 17:45 | disposition home or self-care (01) ==
LOC: HO.CHCLNP 17:44
PROVIDERS: Visit Provider Pediatrics
DX: J06.9 Acute upper respiratory infection, unspecified (principal)
CPT/HCPCS: 87070; 87147

== ENCOUNTER 2024-10-23 16:20 | Outpatient (REF) | payer MEDICAID, SELFPAY ==
--- NOTE | ~2024-10-23 | US_ITS ---
EXAMINATION: US TRIPLEX LOWER EXTREMITY, LEFT CLINICAL INFORMATION: Left leg pain COMPARISON: None available. TECHNIQUE: Color-flow triplex imaging with spectral analysis and compression Doppler were performed on the left lower extremity. FINDINGS: Respiratory variation, normal compression and augmented flow are noted throughout the left lower extremity. The visualized common femoral vein, superficial femoral vein, profunda femoral vein, popliteal vein and midcalf peroneal and posterior tibial venous segments show no evidence of deep venous thrombosis. US/US venous duplex LE LT IMPRESSION: No evidence of deep venous thrombosis involving the left lower extremity. Electronically signed by: Adam Saucedo MD 10/23/2024 05:07 PM EDT
== END 2024-10-23 16:21 | disposition home or self-care (01) ==
LOC: HO.US 16:20
PROVIDERS: Visit Provider Family Medicine
DX: L03.116 Cellulitis of left lower limb (principal); L02.416 Cutaneous abscess of left lower limb; R60.0 Localized edema
CPT/HCPCS: 93971

== ENCOUNTER → 2024-10-23 16:22 | Outpatient (BNV) | payer MEDICAID, SELFPAY | PROVIDERS: Visit Provider Radiology Diagnostic Radiology | DX: M79.605 Pain in left leg (principal) | CPT/HCPCS: 93971 ==

== ENCOUNTER 2024-10-26 10:14 | Outpatient (REF) | payer MEDICAID, SELFPAY ==
[2024-10-26 14:56] LABS: Hematocrit 39.6 % (37.0-47.0); Hemoglobin 12.0 g/dl (12.0-16.0); Mean Corpuscular HGB Conc 30.3 g/dl (31.0-35.0); Mean Corpuscular Hemoglobin 24.9 pg (27.0-33.0); Mean Corpuscular Volume 82.2 fL (80.0-98.0); NRBC Abs Auto 0.000 X10*3/uL (0.0-0.012); NRBC Pct Auto 0.0 /100WBC (0.0-0.2); Platelet Count 252 X10*3/uL (160-400); Red Blood Count 4.82 X10*6/uL (4.20-5.50); White Blood Count 6.8 X10*3/uL (4.8-10.8)
[2024-10-26 15:30] LABS: Alanine Aminotransferase 23 U/L (0-31); Albumin Level 4.0 g/dL (3.5-5.0); Alkaline Phosphatase 72 U/L (39-117); Anion Gap 13 (12-20); Aspartate Amino Transferase 34 U/L (5-31); Blood Urea Nitrogen 11 mg/dL (9-16); Calcium 9.1 mg/dL (8.4-10.2); Carbon Dioxide 25 mmol/L (22-29); Chloride 107 mmol/L (96-108); Estimated Glomerular Filt Rate > 60; Potassium 4.0 mmol/L (3.3-5.1); Sodium 141 mmol/L (135-145); Total Protein 7.3 g/dL (6.5-8.0)
== END 2024-10-26 10:15 | disposition home or self-care (01) ==
LOC: HO.CHCLDS 10:14
PROVIDERS: Visit Provider Family Medicine
DX: R60.0 Localized edema (principal)
CPT/HCPCS: 36415; 80053; 85027